=== PATIENT | male | born 1985 | race Caucasian/White ===

== ENCOUNTER 2016-08-28 14:59 | Observation (INO) | payer MEDICAID, SELFPAY ==
[2016-08-28 15:25] VITALS: BMI 21.3
[2016-08-28 15:35] VITALS: BP 121/74; PULSE 91; RESP 18; TEMP 37; O2SAT 99
[2016-08-28 16:34] LABS: AST(SGOT) 14 U/L (15-37); Alanine Aminotransfer ALT/SGPT 20 U/L (12-78); Albumin, Serum 3.8 g/dL (3.4-5.0); Alkaline Phosphatase 87 U/L (45-117); Anion Gap 6 (5-15); BUN 9 mg/dL (7-18); BUN/Creat Ratio 11.5 RATIO (10-20); Chloride 101 mmol/L (98-107); Creatinine, Serum 0.78 mg/dL (0.70-1.30); EST Glomerular Filtration Rate 121 mL/min (>60); Est Glom Filt Rate - Afr Amer 146 mL/min (>60); Estimated Creatinine Clearance 117.56 ml/min; Globulin 3.7 g/dL (2.3-3.5); Glucose 103 mg/dL (70-110); Potassium 3.1 mmol/L (3.5-5.1); Protein, Total 7.5 g/dL (6.4-8.2); Sodium Level 141 mmol/L (136-145)
--- NOTE | 2016-08-28 16:36 | HP.PCM_ITS ---
History of Present Illness Date of Admission: 08/28/16 Chief Complaint: Acute opiate withdrawal The patient is a 31 year old male was referred via [facility] program for acute opiate withdrawal. Early in the morning patient had episode of opiate overdose, he was in the [place] ER, was given Narcan, recovered from overdose. Starting to have symptoms of withdrawal now. Patient reports generalized pain involving abdomen, chest, muscle aches, minimal cramping, starting to have loose bowel movements, mild nausea. Denies other complaints. No fever/chills. Denies urinary/neuro complaints. Patient also does report mild discomfort in the left lower wisdom tooth-about 1 week ago was diagnosed with dental abscess, taking antibiotics, has appointment with dentist, says it pain much improved since he is on antibiotic. Past medical history. Hepatitis B-does have follow-up at [facility]. Polysubstance use disorder. Insomnia. Social history. Patient is independent in his daily activities. Smokes about three quarters a pack per day. Denies use of alcohol. Using heroin-snores, denies IV drug use, used cocaine-last time 1 week ago. Family history. Not relevant to current presentation. Past Medical History Allergies No Known Allergies Allergy (Verified 08/28/16 15:58) Home Medications: Ambulatory Orders Medication Instructions Recorded Clindamycin [Cleocin] 300 mg PO BID 08/28/16 Docusate Sodium 1 tab PO BID 08/28/16 Guaifenesin [Mucinex] 600 mg PO Q12H 08/28/16 Ibuprofen 1 tab PO Q8H 08/28/16 Nicotine [Nicoderm] 1 patch TRANSDERM. DAILY 08/28/16 Nortriptyline HCl [Pamelor] 25 mg PO QHS 08/28/16 Ondansetron [Zofran Odt] 4 mg PO Q6H PRN PRN 08/28/16 Zolpidem Tartrate [Ambien 5 mg PO QHS 08/28/16 (Generic)] Smoking Status: Current every day smoker . - As above Review of Systems Constitutional: Denies: Chills, Fever, Malaise, Weakness, Fatigue Eyes: Denies: Vision Change HEENT: Denies: Visual Changes Cardiovascular: Reports: Chest Pain - Generalized. Denies: Edema, Light Headedness, Palpitations, Syncope Respiratory: Denies: Cough, Shortness of Breath, Sputum production, Wheezing Gastrointestinal: Reports: Abdominal Pain - Generalized, Diarrhea. Denies: Constipation, Dyspepsia, Hematochezia, Nausea, Melena, Vomiting Genitourinary: Denies: Dysuria, Frequency, Hematuria, Hesitancy, Incontinence, Retention, Urgency Musculoskeletal: Reports: Muscle pain. Denies: Back Pain, Hand Pain, Joint stiffness, Joint swelling Skin: Denies: Dryness, Jaundice, Lesions, Rash Neurological: Denies: Balance problems, Blurred vision, Double vision, Change in Speech, Slurred speech, Confusion, Difficulty swallowing, Focal weakness, Headaches, Incoordination, Numbness, Tingling, Tremor, Seizures Psychiatric: Denies: Anxiety, Depression, Suicidal Ideations Endocrine: Denies: Change in Body Habitus Hematologic/ Lymphatic: Denies: Adenopathy, Anemia, Easy Bruising, Purpura, Hx of blood clot VTE Information - Inpt Only VTE Present on Admission: No Objective: General: Patient is laying down in bed. Awake, alert, oriented ?3. HEENT: Atraumatic, Normocephalic. Clear conjunctiva. Oral mucosa is moist. Extremely poor dentition, multiple teeth were removed, caries in multiple teeth. Left lower wisdom tooth instruction, no signs of significant inflammation around it, no visible drainage. Neck: No nodules noted, no asymmetry. PERRLA. Skin: Clean, dry. No visible rashes. Multiple tattoos. Multiple piercings. Lungs: clear to auscultation bilaterally. CVS: S1-S2 present, no murmurs appreciated, regular rate, good radial pulses. Capillary refill is less than 3 Seconds. Abdomen: Soft, nontender, nondistended, bowel sounds present. No CVA tenderness. Extremities: No clubbing, No cyanosis. No visible deformities. No lower extremity edema. Psych/Mental Status: Normal Affect, Appropriate Neuro: No focal neurological findings. - Physical Exam Vital Signs Temp Pulse Resp BP Pulse Ox 37.0 C 91 18 121/74 99 08/28/16 15:35 08/28/16 15:35 08/28/16 15:35 08/28/16 15:35 08/28/16 15:35 Oxygen Delivery Method Room Air Weight: 61.7 kg Body Mass Index (BMI) 21.3 Laboratory Tests Past 24 Hrs 08/28/16 08/28/16 08/28/16 16:05 16:05 16:05 WBC Pending RBC Pending Hgb Pending Hct Pending MCV Pending MCH Pending MCHC Pending RDW Pending RDW Differential Pending Plt Count Pending Neut % (Auto) Pending Absolute Neuts (auto) Pending Total Counted Pending PT Pending INR Pending Sodium 141 Potassium 3.1 L Chloride 101 Carbon Dioxide 34.0 H Anion Gap 6 BUN 9 Creatinine 0.78 Estim Creat Clear Calc 117.56 Est GFR (MDRD) Af Amer 146 Est GFR (MDRD) Non-Af 121 BUN/Creatinine Ratio 11.5 Glucose 103 Calcium 9.0 Total Bilirubin 0.50 AST 14 L ALT 20 Alkaline Phosphatase 87 Total Protein 7.5 Albumin 3.8 Globulin 3.7 H Albumin/Globulin Ratio 1.0 Assessment/Plan * Acute opiate withdrawal. Will start on the withdrawal protocol with Buprenex. * Chronic hepatitis B. Patient is not on any specific treatment, states it does have follow-up with external grinder tool at [facility]. * Dental abscess. Patient does have previously diagnosed left wisdom tooth dental abscess, on clindamycin. Been taking it for about 4-5 days, will continue for now, patient reports that does have appointment with dentist for tooth extraction as outpatient. * Nicotine use disorder. Smoking cessation counseling. Nicotine replacement therapy was patch. * Polysubstance use disorder. Encourage cessation. * Insomnia. Resume home regimen. * DVT prophylaxis. Patient is a young male without significant risk factors, encourage ambulation and knee/ankle exercises. Dragon Dictation.
[2016-08-28] MEDS: Ondansetron ODT 4 MG Tablet PO (16:38)
[2016-08-28] MEDS: Methocarbamol 750 MG Tablet PO ×2 (16:38→23:52)
[2016-08-28] MEDS: Buprenorphine HCl 2 MG TAB.SUBL SL ×2 (16:39→23:49)
[2016-08-28] MEDS: QUEtiapine 25 MG Tablet PO ×2 (16:39→23:52)
[2016-08-28] MEDS: Dicyclomine 10 MG Capsule 20 MG PO (16:39)
[2016-08-28] MEDS: Loperamide 2 MG Capsule PO (16:39)
[2016-08-28] MEDS: Ibuprofen 400 MG Tablet 800 MG PO (16:39)
[2016-08-28 16:45] LABS: Basophil# 0.05 X10^3/uL; Basophil% 0.3 % (0-1); Eosinophil# 0.42 X10^3/uL; Eosinophils% 2.3 % (0-5); Hematocrit 45.5 % (40-54); Hemoglobin 15.6 g/dl (13.0-16.5); Mean Corp Hgb Conc 34.3 g/gl (32-36); Mean Corpuscular Hgb 31.2 pg (27.0-32.0); Mean Platelet Vol. 10.3 fl (6.2-12.0); Monocyte# 1.61 X10^3/uL; Monocyte% 8.9 % (0-10); Neutrophil # 14.02 X10^3/uL (2.7-7.7); Neutrophil % 77.3 % (47-70); Platelet Count 322 K/mm3 (150-450); RBC Distribution Width CV 12.9 % (11.6-14.6); RBC Distribution Width SD 42.2 fl (35.1-43.9); White Blood Count 18.1 K/mm3 (4.4-11.0)
[2016-08-28 16:48] LABS: Differential Indicated SCAN CRITERIA MET; POSITIVE COUNT NO; POSITIVE DIFFERENTIAL YES; POSITIVE MORPHOLOGY NO
[2016-08-28 16:54] LABS: International Normalized Ratio 0.9
[2016-08-28 17:04] LABS: Differential Comment SCANNED
[2016-08-28] MEDS: guaiFENesin 600 MG Tablet PO (18:03)
[2016-08-28 19:40] LABS: Amphetamine Urine VISTA NEGATIVE (<1000 ng/mL); Barbiturate Urine VISTA NEGATIVE (< 200 ng/mL); Benzodiazepine Urine VISTA NEGATIVE (< 200 ng/mL); Cocaine Urine VISTA POSITIVE (< 300 ng/mL); Ecstacy Urine VISTA NEGATIVE (< 500 ng/mL); Methadone Urine VISTA NEGATIVE (< 300 ng/mL); PCP Urine VISTA NEGATIVE (< 25 ng/mL); THC Urine VISTA POSITIVE (< 50 ng/mL); Vista UDS pH Range 6
[2016-08-28 20:53] VITALS: BP 110/61; PULSE 75; RESP 16; TEMP 36.4
[2016-08-28] MEDS: Acetaminophen 325 MG Tablet 650 MG PO (21:01)
--- NOTE | 2016-08-28 21:02 | NURSING ---
VISTARIL GIVEN FOR WITHDRAWAL SCORE OF 3. TYLENOL GIVEN FOR GENERALIZED PAIN
[2016-08-28] MEDS: Clindamycin HCl 150 MG Capsule 300 MG PO (21:03)
[2016-08-28 23:48] VITALS: BP 100/63; PULSE 73; RESP 16; TEMP 36.6
--- NOTE | 2016-08-28 23:52 | NURSING ---
SEROQUEL GIVEN FOR WITHDRAWAL SCORE OF 4. METHOCARBAMOL GIVEN FOR GENERALIZED PAIN.
[2016-08-29] MEDS: guaiFENesin 600 MG Tablet PO ×2 (03:58→21:56)
[2016-08-29 04:07] VITALS: BP 116/82; PULSE 64; RESP 16; TEMP 36.2; O2SAT 100
[2016-08-29] MEDS: Ibuprofen 400 MG Tablet 800 MG PO ×2 (04:15→14:31)
[2016-08-29 10:00] VITALS: BP 116/83; PULSE 63; RESP 18; TEMP 36.8; O2SAT 98
[2016-08-29] MEDS: Buprenorphine HCl 2 MG TAB.SUBL SL ×2 (10:11→16:35)
[2016-08-29] MEDS: Clindamycin HCl 150 MG Capsule 300 MG PO ×2 (10:12→21:55)
[2016-08-29] MEDS: Thiamine Hydrochloride 100 MG Tablet PO (10:12)
[2016-08-29] MEDS: Dicyclomine 10 MG Capsule 20 MG PO (10:18)
[2016-08-29] MEDS: Acetaminophen 325 MG Tablet 650 MG PO ×3 (10:20→20:33)
--- NOTE | 2016-08-29 10:56 | NURSING ---
pt given scheduled dose of 4 mg buprenorphine and given tylenol for dental pain-pt informed if symptoms don't improve over next 30-40 minutes to make staff aware
[2016-08-29 14:17] VITALS: BP 116/78; PULSE 70; RESP 18; TEMP 36.9
[2016-08-29] MEDS: Methocarbamol 750 MG Tablet PO ×2 (14:31→20:32)
[2016-08-29] MEDS: QUEtiapine 25 MG Tablet PO ×2 (15:43→21:59)
--- NOTE | 2016-08-29 16:09 | PN_ITS ---
Subjective: Patient was seen and examined today, this afternoon he asked the nurse for an icepack for his abscessed tooth. Patient still appears a little shaky, he complains of some abdominal cramping. - Physical Exam General: Alert, Oriented x3, Cooperative, Well developed, Well nourished HEENT: Atraumatic, PERRLA, EOMI, Normocephalic Oral: Moist Mucosa Neck: Supple, No JVD, Negative Carotid Bruits, No Nuchal Rigidity, Trachea Midline, Thyroid Normal Size and Texture Lungs: Clear to auscultation, Normal air movement, No rhonchi, No wheeze, No rales Cardiovascular: Regular rate, Regular Rhythm, Normal S1, Normal S2, No murmurs, PMI Normal, No rub noted, No Gallop Abdomen: Bowel Sounds Present, Soft, Non Tender, Non-Distended, No hernias noted Extremities: No clubbing, No cyanosis, No edema, Capillary Refill Less than 3 Seconds Skin: No rashes, No breakdown Musculoskeletal: No Tenderness to Palpation of Joints or Extremities Neurological: Cranial nerves II-XII grossly intact, Neuro grossly intact Psych/Mental Status: Normal Affect, Appropriate, Alert and oriented to time, place, person, mood and affect Vital Signs Temp Pulse Resp BP Pulse Ox 98.4 F 70 18 116/78 98 08/29/16 14:17 08/29/16 14:17 08/29/16 14:17 08/29/16 14:17 08/29/16 10:00 Oxygen Delivery Method Room Air Weight: 61.7 kg Body Mass Index (BMI) 21.3 Intake and Output for Last 24 Hours 08/27/16 08/28/16 08/29/16 23:59 23:59 23:59 Intake Total 855 Balance 855 Laboratory Tests Past 24 Hrs 08/28/16 08/28/16 08/28/16 16:05 16:05 16:05 WBC 18.1 H RBC 5.00 Hgb 15.6 Hct 45.5 MCV 91.0 MCH 31.2 MCHC 34.3 RDW 12.9 RDW Differential 42.2 Plt Count 322 MPV 10.3 Immature Gran % (Auto) 0.200 Neut % (Auto) 77.3 H Lymph % (Auto) 11.0 L Warrick % (Auto) 8.9 Eos % (Auto) 2.3 Baso % (Auto) 0.3 Absolute Neuts (auto) 14.0 H Absolute Lymphs (auto) 2.00 Total Counted Not Reportable Differential Comment SCANNED PT 12.0 INR 0.9 Sodium 141 Potassium 3.1 L Chloride 101 Carbon Dioxide 34.0 H Anion Gap 6 BUN 9 Creatinine 0.78 Estim Creat Clear Calc 117.56 Est GFR (MDRD) Af Amer 146 Est GFR (MDRD) Non-Af 121 BUN/Creatinine Ratio 11.5 Glucose 103 Calcium 9.0 Total Bilirubin 0.50 AST 14 L ALT 20 Alkaline Phosphatase 87 Total Protein 7.5 Albumin 3.8 Globulin 3.7 H Albumin/Globulin Ratio 1.0 Urine Opiates Screen Urine Methadone Screen Ur Barbiturates Screen Ur Phencyclidine Scrn Ur Amphetamines Screen U Methamphetamin-MDMA U Benzodiazepines Scrn Urine Cocaine Screen U Cannabinoids Screen Ur Drug Screen Comment 08/28/16 18:05 WBC RBC Hgb Hct MCV MCH MCHC RDW RDW Differential Plt Count MPV Immature Gran % (Auto) Neut % (Auto) Lymph % (Auto) Warrick % (Auto) Eos % (Auto) Baso % (Auto) Absolute Neuts (auto) Absolute Lymphs (auto) Total Counted Differential Comment PT INR Sodium Potassium Chloride Carbon Dioxide Anion Gap BUN Creatinine Estim Creat Clear Calc Est GFR (MDRD) Af Amer Est GFR (MDRD) Non-Af BUN/Creatinine Ratio Glucose Calcium Total Bilirubin AST ALT Alkaline Phosphatase Total Protein Albumin Globulin Albumin/Globulin Ratio Urine Opiates Screen POSITIVE H Urine Methadone Screen NEGATIVE Ur Barbiturates Screen NEGATIVE Ur Phencyclidine Scrn NEGATIVE Ur Amphetamines Screen NEGATIVE U Methamphetamin-MDMA NEGATIVE U Benzodiazepines Scrn NEGATIVE Urine Cocaine Screen POSITIVE H U Cannabinoids Screen POSITIVE H Ur Drug Screen Comment Assessment/Plan #1 acute opiate withdrawal-continue medical stabilization program, no new orders #2 left wisdom tooth dental abscess-continue oral clindamycin
--- NOTE | 2016-08-29 16:33 | CHAPLAIN ---
met this patient as he was walking the halls and asked if we could talk; he took me to his room; pt identified himself as addict who overdosed yesterday and decided to come for help; [place] from out of town and has a long time girlfriend who is also mother to his five children; pt said that he decided to get help for the sake of his children and for himself 'because I don't want to '; pt says that he doesn't know why he got started on drugs but knows that he began after his father and his uncle ; he stated that these were the 'male figures in my life'; later pt said that his father was an alcoholic; pt has not been in treatment before but believes he can get help there; we talked about what pt likes to do and how to find things that will replace his desire for drugs; pt talked about working on cars as his hobby; pt was open to receive a prayer and said I used to go to [facility] when I was a kid so I'm ok with that
[2016-08-29 18:30] VITALS: BP 128/78; PULSE 74; RESP 18; TEMP 36.9
[2016-08-29] MEDS: Nortriptyline 25 MG Capsule PO (21:58)
[2016-08-29 22:00] VITALS: BP 118/68; PULSE 79; RESP 16; TEMP 36.7; O2SAT 97
[2016-08-30] MEDS: Buprenorphine HCl 2 MG TAB.SUBL SL ×3 (00:08→20:39)
[2016-08-30 10:04] VITALS: BP 116/78; PULSE 70; RESP 14; TEMP 36.4
[2016-08-30] MEDS: Methocarbamol 750 MG Tablet PO ×2 (10:16→23:46)
[2016-08-30] MEDS: Thiamine Hydrochloride 100 MG Tablet PO (10:16)
[2016-08-30] MEDS: Clindamycin HCl 150 MG Capsule 300 MG PO ×2 (10:16→22:35)
[2016-08-30] MEDS: Acetaminophen 325 MG Tablet 650 MG PO (10:17)
[2016-08-30] MEDS: guaiFENesin 600 MG Tablet PO ×2 (10:17→22:35)
[2016-08-30 14:48] VITALS: BP 119/77; PULSE 81; RESP 18; TEMP 37.1
--- NOTE | 2016-08-30 19:01 | PN_ITS ---
Subjective: Patient seen and examined today, he voices no complaints to this examiner, he does not have any abdominal cramping or diarrhea, he does not complain of tremor - Physical Exam General: Alert, Oriented x3, Cooperative, No apparent distress, Well developed, Well nourished HEENT: Atraumatic, PERRLA, EOMI, Normocephalic Oral: Moist Mucosa Neck: Supple, No JVD, Negative Carotid Bruits, No Nuchal Rigidity, Trachea Midline, Thyroid Normal Size and Texture Lungs: Clear to auscultation, Normal air movement, No rhonchi, No wheeze, No rales Cardiovascular: Regular rate, Regular Rhythm, Normal S1, Normal S2, No murmurs, No Ectopic Activity, PMI Normal, No rub noted, No Gallop Abdomen: Bowel Sounds Present, Soft, Non Tender, Non-Distended, No hernias noted Extremities: No clubbing, No cyanosis, No edema, Capillary Refill Less than 3 Seconds Skin: No rashes, No breakdown Musculoskeletal: No Tenderness to Palpation of Joints or Extremities Neurological: Cranial nerves II-XII grossly intact, Neuro grossly intact, Muscle tone normal, Sensory exam intact to light touch and pain, Coordination normal Psych/Mental Status: Normal Affect, Appropriate, Alert and oriented to time, place, person, mood and affect Vital Signs Temp Pulse Resp BP Pulse Ox 98.8 F 81 18 119/77 97 08/30/16 14:48 08/30/16 14:48 08/30/16 14:48 08/30/16 14:48 08/29/16 22:00 Oxygen Delivery Method Room Air Weight: 61.7 kg Body Mass Index (BMI) 21.3 Intake and Output for Last 24 Hours 08/28/16 08/29/16 08/30/16 23:59 23:59 23:59 Intake Total 855 Balance 855 Assessment/Plan #1 acute opiate withdrawal-continue medical stabilization program, no new orders , patient remains improved at this time #2 left wisdom tooth dental abscess-continue oral clindamycin
[2016-08-30 20:36] VITALS: BP 128/78; PULSE 81; RESP 18; TEMP 36.9
[2016-08-30] MEDS: QUEtiapine 25 MG Tablet PO (20:39)
[2016-08-30] MEDS: Zolpidem Tartrate 5 MG Tablet PO (22:35)
[2016-08-30] MEDS: Ibuprofen 400 MG Tablet 800 MG PO (22:35)
[2016-08-30] MEDS: Nortriptyline 25 MG Capsule PO (23:46)
[2016-08-31 09:41] VITALS: BP 128/84; PULSE 69; RESP 16; TEMP 36.8
[2016-08-31] MEDS: Clindamycin HCl 150 MG Capsule 300 MG PO (09:44)
[2016-08-31] MEDS: guaiFENesin 600 MG Tablet PO (09:45)
[2016-08-31] MEDS: Thiamine Hydrochloride 100 MG Tablet PO (09:45)
[2016-08-31] MEDS: Buprenorphine HCl 2 MG TAB.SUBL SL (09:47)
--- NOTE | 2016-08-31 10:01 | PCM.DC ---
Discharge Diet: No Restrictions Discharge Activity: Return to Normal Activity Weight Bearing Status: Full weight bearing Allergies/Adverse Reactions: Allergies No Known Allergies Allergy (Verified 08/28/16 15:58) Medications to take at Discharge Clindamycin [Cleocin] 300 mg PO BID 08/28/16 Docusate Sodium 1 tab PO BID 08/28/16 Guaifenesin [Mucinex] 600 mg PO Q12H 08/28/16 Ibuprofen 1 tab PO Q8H 08/28/16 Nicotine [Nicoderm] 1 patch TRANSDERM. DAILY 08/28/16 Nortriptyline HCl [Pamelor] 25 mg PO QHS 08/28/16 Ondansetron [Zofran Odt] 4 mg PO Q6H PRN PRN 08/28/16 Zolpidem Tartrate [Ambien (Generic)] 5 mg PO QHS 08/28/16 Primary Care Physician: Latosha Lugo [Primary Care Provider] -
--- NOTE | 2016-09-04 20:53 | PCM.DC.SUM ---
Discharge Date and Diagnosis Date of Admission: 08/28/16 Date of Discharge: 08/31/16 - Primary Discharge Diagnosis #1 acute opiate withdrawal #2 left wisdom tooth dental abscess Hospital Course and Treatment Operations: None Procedures: None Summary of Care Provided: The patient is a 31 year old M who was admitted into the medical stabilization program at [facility] [place] for opiate withdrawal. Patient also had a dental abscess which have been diagnosed as an outpatient and his antibiotics for this were continued during his hospitalization. Order set up for medical stabilization program was utilized, patient had no complications during his hospital stay. On 08/31/16, patient was seen and examined felt to be in stable condition for discharge home Discharge Diet: No Restrictions Discharge Activity: Return to Normal Activity Weight Bearing Status: Full weight bearing Home Medications: Medications to take at Discharge Clindamycin [Cleocin] 300 mg PO BID 08/28/16 Docusate Sodium 1 tab PO BID 08/28/16 Guaifenesin [Mucinex] 600 mg PO Q12H 08/28/16 Ibuprofen 1 tab PO Q8H 08/28/16 Nicotine [Nicoderm] 1 patch TRANSDERM. DAILY 08/28/16 Nortriptyline HCl [Pamelor] 25 mg PO QHS 08/28/16 Ondansetron [Zofran Odt] 4 mg PO Q6H PRN PRN 08/28/16 Zolpidem Tartrate [Ambien (Generic)] 5 mg PO QHS 08/28/16 Primary Care Physician: Latosha Lugo [Primary Care Provider] - Disposition: Home Minutes spent on discharge:: 25 Patient Condition:: Stable Meaningful Use Info Meaningful Use Diagnoses (Choose all that apply): None applicable
== END 2016-08-31 11:20 | disposition home or self-care (01) | DRG 773 ==
LOC: MS2 05-05 07:47
PROVIDERS: Admitting Provider Internal Medicine; Family Provider Internal Medicine; PCP Internal Medicine; Visit Provider Internal Medicine
DX: F11.23 Opioid dependence with withdrawal (principal); F17.210 Nicotine dependence, cigarettes, uncomplicated; K04.7 Periapical abscess without sinus; G47.00 Insomnia, unspecified; B18.1 Chronic viral hepatitis B without delta-agent
CPT/HCPCS: 80053; 80307; 85025; 85610; 99218; 99406; G0378; G0379